=== PATIENT | female | born 1960 | race Caucasian/White ===

== ENCOUNTER 2020-09-26 20:27 | Emergency (ER) | payer OTHER, MEDICARE ==
[~2020-09-26] VITALS: Ht 167.6 cm; Wt 70.3 kg
[2020-09-26] MEDS ORDERED: HYDR1TAB94 PO (23:10)
== END 2020-09-26 23:30 | disposition home or self-care (01) ==
LOC: ER 20:27
DX: S20.212A Contusion of left front wall of thorax, initial encounter (principal); S61.212A Laceration without foreign body of right middle finger without damage to nail, initial encounter; Z23 Encounter for immunization; V43.52XA Car driver injured in collision with other type car in traffic accident, initial encounter; Y92.410 Unspecified street and highway as the place of occurrence of the external cause
CPT/HCPCS: 71046; 73120; 90471; 90714; 99284-25; A9270; A9270-GY